=== PATIENT | male | born 1955 | race Caucasian/White ===

== ENCOUNTER 2017-06-01 11:44 | Emergency (ER) | payer MEDICAID ==
[~2017-06-01] VITALS: Ht 167.6 cm; Wt 75.0 kg
[~2017-06-01 11:44] MED LIST: AMOX125S8 PO; RANI300T4 PO; TAMS-11 PO
[2017-06-01] MEDS ORDERED: ACETAMINOPHEN 325MG TABLET PO STA (16:28)
[2017-06-01] MEDS ORDERED: FAMOTIDINE 20MG/2ML VIAL IV STA (16:28)
[2017-06-01] MEDS ORDERED: ONDANSETRON HCL 4MG/2ML VIAL IV STA (16:28)
[2017-06-01] MEDS ORDERED: MAGNESIUM/ALUMINUM HYDROXIDE/SIMETHICONE 30ML UDC PO STA (16:28)
[2017-06-01] MEDS ORDERED: VISCOUS LIDOCAINE 2% 15 ML UDC PO STA (16:28)
[2017-06-01] MEDS ORDERED: SODIUM CHLORIDE 0.9% 1,000 ML IV ONE (16:28)
[2017-06-01 16:53] LABS: BASOPHILS % 0.4 % (0.0-2.0); EOSINOPHILS % 0.5 % (0.0-5.0); HEMATOCRIT. 48.3 % (42.0-52.0); HEMOGLOBIN. 16.2 g/dL (14.0-18.0); MEAN CORPUSCULAR HEMOGLOBIN 30.9 pg (28.0-32.0); MEAN CORPUSCULAR VOLUME 92.5 fL (80.0-94.0); MEAN PLATELET VOLUME 7.4 fl (7.4-10.4); MONOCYTES % 10.6 % (2.0-8.0); NEUTROPHILS % 64.5 % (40.0-76.0); PLATELET 226 x1000/uL (130-400); RED BLOOD CELL COUNT 5.22 mill/uL (4.7-6.1)
[2017-06-01 16:56] LABS: CHLORIDE 106 mEq/L (98-107)
[2017-06-01 17:03] LABS: CARBON DIOXIDE 33 mEq/L (21-32)
[2017-06-01 17:06] LABS: CLARITY URINE CLOUDY (CLEAR); COLOR URINE YELLOW (YELLOW); KETONES URINE 1+ (NEGATIVE); LEUKOCYTE ESTERASE URINE NEGATIVE (NEGATIVE); NITRITE URINE NEGATIVE (NEGATIVE); OCCULT BLOOD URINE NEGATIVE (NEGATIVE); PH URINE >=9.0 (4.5-8.0); PROTEIN URINE 2+ (NEGATIVE); SPECIFIC GRAVITY URINE 1.026 (1.005-1.030)
[2017-06-01 18:35] VITALS: BP 128/68
== END 2017-06-01 18:39 | disposition home or self-care (01) ==
LOC: ER 12:51
DX: J06.9 Acute upper respiratory infection, unspecified (principal); R10.13 Epigastric pain; E11.9 Type 2 diabetes mellitus without complications
CPT/HCPCS: 36415; 71045; 80053; 81001; 83690; 85025; 93005; 96361; 96374; 96375; 99285; J2405; J3490; J7030; Z7610

== ENCOUNTER 2021-09-20 15:25 | Emergency (ER) | payer MEDICARE, MEDICAID ==
[~2021-09-20] VITALS: Ht 162.6 cm; Wt 75.0 kg
[~2021-09-20 15:25] MED LIST changes: +AMOX125S12 PO; -AMOX125S8 PO
[2021-09-20] MEDS ORDERED: AMOXICILLIN 500 MG CAPSULE PO ONE (16:00)
[2021-09-20] MEDS ORDERED: IBUPROFEN 600MG TABLET PO ONE (16:00)
[2021-09-20] MEDS ORDERED: AMOX-494 MT (16:05)
[2021-09-20] MEDS ORDERED: IBUP-2029 MT (16:05)
[2021-09-20 16:37] VITALS: BP 118/75
== END 2021-09-20 16:39 | disposition home or self-care (01) ==
LOC: ER 15:25
DX: K08.89 Other specified disorders of teeth and supporting structures (principal); E78.00 Pure hypercholesterolemia, unspecified; I10 Essential (primary) hypertension; Z79.899 Other long term (current) drug therapy
CPT/HCPCS: 99283

== ENCOUNTER 2022-06-19 11:47 | Emergency (ER) | payer OTHER, MEDICAID ==
[~2022-06-19] VITALS: Ht 160 cm; Wt 59.0 kg
[~2022-06-19 11:47] MED LIST changes: +AMOX-494 MT; +IBUP-2029 MT
[2022-06-19 11:57] VITALS: BP 123/62
[2022-06-19] MEDS ORDERED: POLY15DR31 EACHEYE (12:36)
[2022-06-19] MEDS ORDERED: BENZ100C86 MT (12:36)
[2022-06-19] MEDS ORDERED: OLOP5DRO25 EACHEYE (12:36)
== END 2022-06-19 13:30 | disposition home or self-care (01) ==
LOC: ER 11:47
DX: B30.9 Viral conjunctivitis, unspecified (principal); E78.00 Pure hypercholesterolemia, unspecified; I10 Essential (primary) hypertension; M54.30 Sciatica, unspecified side
CPT/HCPCS: 99283